=== PATIENT | male | born 1990 | race African-American/Black ===

== ENCOUNTER 2021-09-17 08:33 | Emergency (ER) | payer SELFPAY ==
[~2021-09-17] VITALS: Ht 177.8 cm; Wt 84.8 kg
--- NOTE | 2021-09-17 08:43 | NUR ---
[id number] C/O HEADACHE S/P TAKING [place] 60MG OF OXYCODONE 3HRS AGO, PER RA REPORT, BYSTANDERS SAW PT PASSED OUT IN HIS CAR AND CALLED 911,DENIES SI/HI, AAOX3, BREATHING EVEN AND NON LABORED, AWAITING MD DEL CID
--- NOTE | 2021-09-17 09:14 | NUR ---
[id number] AT [facility]
--- NOTE | 2021-09-17 11:55 | NUR ---
Patient discharged to [facility] unit #[id number] in stable condition. Written and verbal after care instructions given. Patient verbalizes understanding of instruction.
[2021-09-17 12:02] VITALS: BP 138/78
== END 2021-09-17 12:03 ==
LOC: ER 08:36
DX: F11.90 Opioid use, unspecified, uncomplicated (principal); R00.0 Tachycardia, unspecified